=== PATIENT | female | born 1950 | race Caucasian/White ===

== ENCOUNTER 2024-11-06 15:10 | Emergency (ER) | payer MEDICARE, OTHER ==
[~2024-11-06] VITALS: Ht 152.4 cm; Wt 106.0 kg
[2024-11-06 15:28] VITALS: TEMP 98.8
[2024-11-06 16:43] LABS: BASO # 0.1 10^3/uL (0.0-0.2); BASO % 0.5 % (0.0-1.0); EOS # 0.4 10^3/uL (0.0-0.5); EOS % 3.3 % (0.0-3.0); HEMATOCRIT 40.1 % (36.0-47.0); HEMOGLOBIN 11.9 g/dl (12.0-15.5); LYMPH # 2.8 10^3/uL (1.5-5.0); LYMPH % 24.4 % (24.0-44.0); MEAN CORPUSCULAR HEMOGLOBIN 28.4 pg (27.0-33.0); MEAN CORPUSCULAR HGB CONC 29.7 g/dl (32.0-36.5); MEAN CORPUSCULAR VOLUME 95.7 fl (80.0-96.0); MONO # 0.9 10^3/uL (0.0-0.8); MONO % 8.3 % (2.0-8.0); NEUTROPHILS # 7.2 10^3/uL (1.5-8.5); NEUTROPHILS % 63.3 % (36.0-66.0); PLATELET COUNT, AUTOMATED 281 10^3/uL (150-450); RED BLOOD COUNT 4.19 10^6/uL (4.00-5.40); WHITE BLOOD COUNT 11.4 10^3/uL (4.0-10.0)
[2024-11-06 16:48] LABS: ERYTHROCYTE SEDIMENTATION RATE 108 mm/hr (0-30)
[2024-11-06 17:18] LABS: INR 0.84; PARTIAL THROMBOPLASTIN TIME 34.1 SECONDS (24.8-34.2); PROTHROMBIN TIME 11.8 SECONDS (12.5-14.5)
[2024-11-06 18:04] LABS: C REACTIVE PROTEIN QUANTITATIV 0.52 MG/DL (<1.0)
[2024-11-06 18:16] LABS: PROCALCITONIN 0.12 ng/ml
[2024-11-06 18:19] LABS: ALBUMIN 3.2 G/DL (3.2-5.2); BILIRUBIN,DIRECT 0.1 MG/DL (<0.4); BILIRUBIN,TOTAL 0.4 MG/DL (0.3-1.2); CALCIUM LEVEL 8.7 MG/DL (8.3-10.6); CK-MB VALUE MASS 1.2 NG/ML (<3.6); CREATININE FOR GFR 1.27 MG/DL (0.55-1.30); GLOMERULAR FILTRATION RATE 43.7 (>39); MB/CK RELATIVE INDEX 1.5 (< OR =4); POTASSIUM SERUM 3.7 MMOL/L (3.5-5.1); THYROID STIMULATING HORMONE 2.091 uIU/ML (0.55-4.78); THYROXINE (T4) 8.1 UG/DL (4.5-10.9)
[2024-11-06] MEDS: DEXTROSE 50% 50ML SYRINGE IV STA (18:26)
[2024-11-06 19:21] LABS: MB/CK RELATIVE INDEX 1.25 (< OR =4)
[2024-11-06] MEDS ORDERED: DOXY-441 PO (19:38)
[2024-11-06] MEDS: DOXYCYCLINE HYCLATE 100MG TABLET PO ONE (19:50)
[2024-11-06 20:15] VITALS: BP 135/66; O2SAT 96
== END 2024-11-06 20:28 | disposition home or self-care (01) ==
LOC: M ED 15:10
DX: L03.116 Cellulitis of left lower limb (principal); R22.43 Localized swelling, mass and lump, lower limb, bilateral; I87.313 Chronic venous hypertension (idiopathic) with ulcer of bilateral lower extremity; I45.10 Unspecified right bundle-branch block; I50.22 Chronic systolic (congestive) heart failure; J44.9 Chronic obstructive pulmonary disease, unspecified; Z79.2 Long term (current) use of antibiotics

== ENCOUNTER 2025-04-03 18:50 | Inpatient (IN) | payer MEDICARE ==
[~2025-04-03] VITALS: Ht 157.5 cm; Wt 101.4 kg
[~2025-04-03 18:50] MED LIST: DOXY-441 PO
[2025-04-03] MEDS: ACETAMINOPHEN *IV* 1,000 MG in IV 1 EA IV ONE (19:42)
[2025-04-03 19:48] LABS: BASO # 0.1 10^3/uL (0.0-0.2); BASO % 0.5 % (0.0-1.0); EOS # 0.4 10^3/uL (0.0-0.5); EOS % 3.6 % (0.0-3.0); LYMPH # 2.2 10^3/uL (1.5-5.0); LYMPH % 18.5 % (24.0-44.0); MONO # 0.9 10^3/uL (0.0-0.8); MONO % 7.7 % (2.0-8.0); NEUTROPHILS # 8.4 10^3/uL (1.5-8.5); NEUTROPHILS % 69.1 % (36.0-66.0); PLATELET COUNT, AUTOMATED 408 10^3/uL (150-450); VENOUS BASE EXCESS 8.8 (-2.0-2.0); VENOUS HCO3 37.8 MMOL/L (23.0-27.0); VENOUS O2 SATURATION 72.1 % (60.0-80.0); VENOUS PARTIAL PRESSURE CO2 75.7 mmHg (38.0-50.0); VENOUS PARTIAL PRESSURE O2 44.3 mmHg (30.0-50.0); VENOUS PH 7.316 UNITS (7.330-7.430); VENOUS STANDARD HCO3 32.0 MMOL/L; VENOUS TOTAL CO2 40.1 MMOL/L (24.0-28.0)
[2025-04-03] MEDS: IPRATROPIUM 0.5 MG/ALBUTEROL 2.5 MG INH SOL UD 3 ML NEB ONE ×2 (19:48→19:49)
[2025-04-03] MEDS: ALBUTEROL SULFATE 2.5 MG/0.5 ML INH CONCENTRATE NEB SOLN NEB ONE (19:48)
[2025-04-03] MEDS: ONDANSETRON 4MG 2ML VIAL IV ONE (20:25)
[2025-04-03 21:06] LABS: CK-MB VALUE MASS 2.3 NG/ML (<3.6)
[2025-04-03 21:08] LABS: CPK CREATINE PHOSPHOKINASE 87.0 U/L (34-145); MB/CK RELATIVE INDEX 2.64 (< OR =4)
[2025-04-03 21:09] LABS: THYROXINE (T4) 7.9 UG/DL (4.5-10.9)
[2025-04-03 21:17] LABS: ALT/SGPT 12.0 U/L (7.0-40); AST/SGOT 19.0 U/L (<34); CALCIUM LEVEL 8.4 MG/DL (8.3-10.6); CARBON DIOXIDE LEVEL 36.0 MMOL/L (20-31); CHLORIDE LEVEL 94.0 MMOL/L (98-107); CREATININE FOR GFR 0.99 MG/DL (0.55-1.30); GLOMERULAR FILTRATION RATE 59.5 (>39); POTASSIUM SERUM 3.8 MMOL/L (3.5-5.1); SODIUM LEVEL 139.0 MMOL/L (136-145)
[2025-04-03] MEDS ORDERED: ISOVUE-370 76% 100 ML VIAL As Ordered ONE (21:41)
[2025-04-03 22:15] LABS: CK-MB VALUE MASS 1.4 NG/ML (<3.6)
[2025-04-03 22:16] LABS: CPK CREATINE PHOSPHOKINASE 82.0 U/L (34-145); MB/CK RELATIVE INDEX 1.7 (< OR =4)
[2025-04-03 23:03] LABS: KETONE, URINE AUTO RFX NEGATIVE (NEGATIVE); LEUKOCYTE ESTERASE UR AUTO RFX NEGATIVE (NEGATIVE); MUCUS, URINE RFX SMALL (NEGATIVE); NITRITE, URINE AUTO RFX NEGATIVE (NEGATIVE); RBC, URINE AUTO RFX 3 /HPF (0-3); SQUAM EPITHELIAL CELL UR AURFX 8 /HPF (0-6); WBC, URINE AUTO RFX 3 /HPF (0-3)
[2025-04-03] MEDS ORDERED: MED REC COMMENT (23:42)
[2025-04-03] MEDS ORDERED: METO1TAB87 PO (23:42)
[2025-04-03] MEDS ORDERED: GLIM4TAB5 PO (23:42)
[2025-04-03] MEDS ORDERED: METF10004 PO (23:42)
[2025-04-03] MEDS ORDERED: LANTINJ4 SC (23:42)
[2025-04-03] MEDS ORDERED: FLUT1BLS8 INH (23:42)
[2025-04-03] MEDS ORDERED: FURO20TA2 PO (23:42)
[2025-04-03] MEDS ORDERED: SPIR12.9 INH (23:42)
[2025-04-03] MEDS ORDERED: ROSU20TA86 PO (23:42)
[2025-04-03] MEDS ORDERED: ASPI-226 PO (23:42)
[2025-04-03] MEDS ORDERED: IRBE300T12 PO (23:42)
[2025-04-03] MEDS: cefTRIAXone SOD 1 GM in DEXTROSE 5% (D5W) ADV/MINI-BAG 50 ML IV ONE (23:43)
[2025-04-03] MEDS ORDERED: HOME MED LIST COMPLETE! XX SCH (23:45)
[2025-04-04] VITALS (7 sets, daily range): BP systolic 129–166; BP diastolic 60–72; TEMP 96.3–97.8; O2SAT 93–98
[2025-04-04] MEDS ORDERED: MOM 30 ML SUSPENSION UDC PO PRN (00:40)
[2025-04-04] MEDS: IPRATROPIUM 0.5 MG/ALBUTEROL 2.5 MG INH SOL UD 3 ML INH SCH (01:06)
[2025-04-04] MEDS: AZITHROMYCIN INJ 500 MG, VIAL MATE ADAPTER 1 EACH in NS 250 ML IV ONE (01:46)
[2025-04-04] MEDS ORDERED: IPRATROPIUM 0.5 MG/ALBUTEROL 2.5 MG INH SOL UD 3 ML INH SCH (02:00)
[2025-04-04] MEDS ORDERED: ALBUTEROL SULFATE 2.5 MG/0.5 ML INH CONCENTRATE NEB SOLN INH SCH ×2 (02:00)
[2025-04-04] MEDS ORDERED: GLUCOSE 4 GM CHEW PO PRN (02:25)
[2025-04-04] MEDS ORDERED: DEXTROSE 50% 50 ML SYRINGE IV PRN (02:25)
[2025-04-04] MEDS ORDERED: GLUCAGON INJ 1 MG VIAL SC PRN (02:25)
[2025-04-04] MEDS ORDERED: ALBUTEROL SULFATE 2.5 MG/0.5 ML INH CONCENTRATE NEB SOLN INH PRN (02:55)
[2025-04-04] MEDS: LanTUS (INSULIN GLARGINE INJ) 1 UNITS/0.01 ML SC SCH (03:24)
[2025-04-04] MEDS: LR 1,000 ML IV SCH (03:25)
[2025-04-04] MEDS: ACETAMINOPHEN 325 MG TAB PO PRN (04:00)
[2025-04-04] MEDS: ROSUVASTATIN 10 MG TAB PO SCH (04:50)
[2025-04-04] MEDS: ADVAIR HFA 230/21 MCG INHALER INH SCH (07:02)
[2025-04-04] MEDS: TIOTROPIUM BROM 2.5MCG/ACTUATION 4GM INH INH SCH (07:02)
[2025-04-04] MEDS: ASPIRIN 81 MG ENTERIC TABLET PO SCH (08:02)
[2025-04-04] MEDS: METOPROLOL TART 12.5 MG PER 1/2 TAB PO SCH (08:03)
[2025-04-04] MEDS: DOCUSATE SODIUM 100 MG CAPSULE PO SCH (08:04)
[2025-04-04] MEDS: FUROSEMIDE 20 MG TAB PO SCH (08:04)
[2025-04-04] MEDS: ENOXAPARIN 40 MG/0.4 ML SYRINGE (J1650 PER 10MG) SC SCH (08:05)
[2025-04-04] MEDS: INSULIN LISPRO (NovoLOG) PER UNIT SC SCH ×2 (08:33→21:00)
[2025-04-04 08:34] LABS: BASO # 0.0 10^3/uL (0.0-0.2); BASO % 0.2 % (0.0-1.0); EOS # 0.0 10^3/uL (0.0-0.5); EOS % 0.0 % (0.0-3.0); LYMPH # 0.6 10^3/uL (1.5-5.0); LYMPH % 5.8 % (24.0-44.0); MONO # 0.1 10^3/uL (0.0-0.8); MONO % 1.0 % (2.0-8.0); NEUTROPHILS # 10.1 10^3/uL (1.5-8.5); NEUTROPHILS % 91.9 % (36.0-66.0); PLATELET COUNT, AUTOMATED 354 10^3/uL (150-450); VENOUS BASE EXCESS 0.5 (-2.0-2.0); VENOUS HCO3 26.0 MMOL/L (23.0-27.0); VENOUS O2 SATURATION 99.2 % (60.0-80.0); VENOUS PARTIAL PRESSURE CO2 45.1 mmHg (38.0-50.0); VENOUS PARTIAL PRESSURE O2 168.8 mmHg (30.0-50.0); VENOUS PH 7.378 UNITS (7.330-7.430); VENOUS STANDARD HCO3 25.0 MMOL/L; VENOUS TOTAL CO2 27.3 MMOL/L (24.0-28.0)
[2025-04-04 09:19] LABS: ALT/SGPT 13.0 U/L (7.0-40); AST/SGOT 24.0 U/L (<34); CALCIUM LEVEL 8.2 MG/DL (8.3-10.6); CARBON DIOXIDE LEVEL 25.0 MMOL/L (20-31); CHLORIDE LEVEL 93.0 MMOL/L (98-107); CREATININE FOR GFR 0.97 MG/DL (0.55-1.30); GLOMERULAR FILTRATION RATE 60.9 (>39); MAGNESIUM LEVEL 1.9 MG/DL (1.8-2.4); POTASSIUM SERUM 5.0 MMOL/L (3.5-5.1); SODIUM LEVEL 135.0 MMOL/L (136-145)
[2025-04-04] MEDS: IRBESARTAN 150 MG TAB PO SCH (10:04)
[2025-04-04] MEDS: NYSTATIN 100,000 UNITS/GM TOPICAL PWD 15 GM TOP SCH (13:27)
[2025-04-04] MEDS ORDERED: OLANZapine 5 MG TAB PO PRN (14:55)
[2025-04-04] MEDS: AZITHROMYCIN 250 MG TABLET PO SCH (21:19)
[2025-04-04] MEDS: OLANZapine 5 MG TAB PO SCH (21:20)
[2025-04-04] MEDS: cefTRIAXone SOD 2 GM in DEXTROSE 5% (D5W) ADV/MINI-BAG 50 ML IV SCH (23:43)
[2025-04-05] VITALS (7 sets, daily range): BP systolic 139–164; BP diastolic 66–98; TEMP 96–97.7; O2SAT 94–100
[2025-04-05 05:58] LABS: BASO # 0.0 10^3/uL (0.0-0.2); BASO % 0.3 % (0.0-1.0); EOS # 0.0 10^3/uL (0.0-0.5); EOS % 0.3 % (0.0-3.0); LYMPH # 1.3 10^3/uL (1.5-5.0); LYMPH % 13.4 % (24.0-44.0); MONO # 0.7 10^3/uL (0.0-0.8); MONO % 6.8 % (2.0-8.0); NEUTROPHILS # 7.9 10^3/uL (1.5-8.5); NEUTROPHILS % 78.6 % (36.0-66.0); PLATELET COUNT, AUTOMATED 355 10^3/uL (150-450)
[2025-04-05 06:29] LABS: ALT/SGPT 11.0 U/L (7.0-40); AST/SGOT 25.0 U/L (<34); CALCIUM LEVEL 8.4 MG/DL (8.3-10.6); CARBON DIOXIDE LEVEL 36.0 MMOL/L (20-31); CHLORIDE LEVEL 93.0 MMOL/L (98-107); CREATININE FOR GFR 1.02 MG/DL (0.55-1.30); GLOMERULAR FILTRATION RATE 57.4 (>39); MAGNESIUM LEVEL 2.1 MG/DL (1.8-2.4); POTASSIUM SERUM 4.2 MMOL/L (3.5-5.1); SODIUM LEVEL 137.0 MMOL/L (136-145)
[2025-04-05] MEDS: predniSONE 20 MG TAB PO SCH (08:11)
[2025-04-05] MEDS: CEFDINIR 300 MG CAP PO SCH (21:14)
[2025-04-06] VITALS: BP 168/67; TEMP 96; O2SAT 98
[2025-04-06 04:00] VITALS: BP 164/70; TEMP 96.5; O2SAT 99
[2025-04-06 07:25] VITALS: BP 158/82; TEMP 97.1; O2SAT 95
[2025-04-06 07:51] LABS: BASO # 0.1 10^3/uL (0.0-0.2); BASO % 0.6 % (0.0-1.0); EOS # 0.1 10^3/uL (0.0-0.5); EOS % 0.9 % (0.0-3.0); LYMPH # 1.4 10^3/uL (1.5-5.0); LYMPH % 16.1 % (24.0-44.0); MONO # 0.7 10^3/uL (0.0-0.8); MONO % 7.3 % (2.0-8.0); NEUTROPHILS # 6.7 10^3/uL (1.5-8.5); NEUTROPHILS % 74.8 % (36.0-66.0); PLATELET COUNT, AUTOMATED 386 10^3/uL (150-450)
[2025-04-06 09:15] VITALS: BP 190/92
[2025-04-06 09:22] LABS: ALT/SGPT 14 U/L (7.0-40); AST/SGOT 23 U/L (<34); CALCIUM LEVEL 9.3 MG/DL (8.3-10.6); CARBON DIOXIDE LEVEL > 40.0 MMOL/L (20-31); CHLORIDE LEVEL 92 MMOL/L (98-107); CREATININE FOR GFR 0.94 MG/DL (0.55-1.30); GLOMERULAR FILTRATION RATE 63.3 (>39); POTASSIUM SERUM 4.2 MMOL/L (3.5-5.1); SODIUM LEVEL 141 MMOL/L (136-145)
[2025-04-06 11:37] VITALS: BP 152/90; TEMP 97.5; O2SAT 96
[2025-04-06 12:39] LABS: VENOUS BASE EXCESS 14.3 (-2.0-2.0); VENOUS HCO3 41.1 MMOL/L (23.0-27.0); VENOUS O2 SATURATION 99.1 % (60.0-80.0); VENOUS PARTIAL PRESSURE CO2 62.4 mmHg (38.0-50.0); VENOUS PARTIAL PRESSURE O2 177.0 mmHg (30.0-50.0); VENOUS PH 7.437 UNITS (7.330-7.430); VENOUS STANDARD HCO3 38.2 MMOL/L; VENOUS TOTAL CO2 43.1 MMOL/L (24.0-28.0)
[2025-04-06] MEDS ORDERED: PRED10TA2 PO (15:27)
[2025-04-06] MEDS ORDERED: CEFD300CAP PO (15:27)
[2025-04-08 04:47] LABS: URINE STREP PNEUMONIAE ANTIGEN Not Detected (Not Detected)
== END 2025-04-06 17:05 | disposition home health service (06) | DRG 871 ==
LOC: M ED 18:50 → M ED INP 04-04 00:49 → M PCU 04-04 02:06
PROVIDERS: ADMIT Student in an Organized Health Care Education/Training Program; ATTEND Internal Medicine
DX: A41.9 Sepsis, unspecified organism (principal); J18.9 Pneumonia, unspecified organism; J96.21 Acute and chronic respiratory failure with hypoxia; J44.0 Chronic obstructive pulmonary disease with (acute) lower respiratory infection; F03.918 Unspecified dementia, unspecified severity, with other behavioral disturbance; I50.9 Heart failure, unspecified; I11.0 Hypertensive heart disease with heart failure; E78.5 Hyperlipidemia, unspecified; E11.9 Type 2 diabetes mellitus without complications; Z87.891 Personal history of nicotine dependence; R41.82 Altered mental status, unspecified; Z79.82 Long term (current) use of aspirin; Z79.899 Other long term (current) drug therapy; Z99.81 Dependence on supplemental oxygen